=== PATIENT | female | born 1945 | race Caucasian/White ===

== ENCOUNTER → 2020-10-17 17:50 | Outpatient (CLI) | payer MEDICARE, SELFPAY ==
--- NOTE | ~2020-10-17 | DEXA_ITS ---
Bone Density Report Name: Greta Hurd Age: 75 Sex: Female Ethnicity: White Date of : 1945 Indication: osteopenia; height loss; postmenopausal Referring Provider: MALINA DELEON Study: Bone densitometry was performed. Exam Date: October 17, 2020 Accession number: [id number] Bone Density: Region BMD T-score Z-score Classification AP Spine (L1-L4) 0.951 -0.9 1.6 Normal Femoral Neck (Left) 0.692 -1.4 0.7 Osteopenia Total Hip (Left) 0.849 -0.8 1.1 Normal Femoral Neck (Right) 0.730 -1.1 1.0 Osteopenia Total Hip (Right) 0.931 -0.1 1.7 Normal Total Hip Mean 0.890 -0.5 1.4 Normal World Health Organization criteria for BMD impression classify patients as: Normal (T-score at or above -1.0), Osteopenia (T-score between -1.0 and -2.5), or Osteoporosis (T-score at or below -2.5). 10-year Fracture Risk(1): Major Osteoporotic Fracture 10% Hip Fracture 2.1% Reported Risk Factors: [place] (), Neck BMD=0.692, BMI=21.3 (1) FRAX(R) Version 3.08. Fracture probability calculated for an untreated patient. Fracture probability may be lower if the patient has received treatment. Previous Exams: Region Exam Age BMD T-score BMD Change BMD Change Date g/cm2 vs Baseline vs Previous AP Spine(L1-L4) 10/17/2020 75 0.951 -0.9 0.131* 0.058* 09/19/2018 73 0.893 -1.4 0.073* 0.035* 09/09/2016 71 0.858 -1.7 0.038* 0.039* 06/07/2014 69 0.819 -2.1 -0.001 0.006 12/08/2012 67 0.812 -2.1 -0.007 0.034* 08/27/2010 65 0.778 -2.4 -0.042* -0.006 07/15/2009 64 0.784 -2.4 -0.035* -0.023 06/08/2007 62 0.807 -2.2 -0.013 -0.013 04/14/2006 61 0.820 -2.1 Total Hip(Left) 10/17/2020 75 0.849 -0.8 0.008 0.006 09/19/2018 73 0.843 -0.8 0.002 0.014 09/09/2016 71 0.829 -0.9 -0.012 0.027 06/07/2014 69 0.802 -1.1 -0.039* 0.012 12/08/2012 67 0.790 -1.2 -0.051* -0.043* 08/27/2010 65 0.833 -0.9 -0.008 0.013 07/15/2009 64 0.819 -1.0 -0.022 0.030* 06/08/2007 62 0.789 -1.3 -0.052* -0.052* 04/14/2006 61 0.841 -0.8 Total Hip(Right) 10/17/2020 75 0.931 -0.1 -0.001 0.001 09/19/2018 73 0.930 -0.1 -0.002 -0.044* 09/09/2016 71 0.974 0.3 0.042* 0.076* 06/07/2014 69 0.898 -0.4 -0.034* 0.050* 12/08/2012 67 0.848 -0.8 -0.08
== END ==
PROVIDERS: Visit Provider Obstetrics & Gynecology Gynecology
DX: Z78.0 Asymptomatic menopausal state (principal); M85.89 Other specified disorders of bone density and structure, multiple sites
CPT/HCPCS: 77080

== ENCOUNTER → 2020-11-07 10:09 | Outpatient (CLI) | payer MEDICARE, SELFPAY ==
--- NOTE | ~2020-11-07 | MR_ITS ---
EXAMINATION: MR brain/brain stem wo con EXAM DATE: 11/07/2020 10:47 INDICATION: Worsening headache since fall 3. Generalized headaches, light sensitivity. TECHNIQUE: Magnetic resonance imaging (MRI) of the brain/brain stem obtained without contrast. Sagitt al T1, axial diffusion, gradient echo (T2*), T1, T2, FLAIR sequences obtained. There is no prior st udy for comparison. FINDINGS: Completely opacified sphenoid sinuses with heterogeneous signal intensity, could be chronic and/or acute sinusitis, polyposis, mucocele or other mass. Recommend sinus CT for further evaluation . There are no areas of restricted diffusion to suggest acute infarction. There is no acute hemorrhage seen on the T2*, a hemosiderin sensitive sequence. No intraparenchymal brain mass lesion. There is mild prominence of the sulci and ventricles related to cerebral atrophy. There are no extra-axia l collections. Flow voids are seen in the cerebral arteries on the T2-weighted sequences consistent with their expected patency. Patient has had bilateral ocular lens surgery. Soft tissue is unremark able. IMPRESSION: 1. Completely opacified heterogeneous sphenoid sinus signal intensity; clinical correlation. Recomme nd sinus CT. 2. No acute intracranial findings. Reviewed, dictated and finalized at location A. IMPRESSION: 1. Completely opacified heterogeneous sphenoid sinus signal intensity; clinica l correlation. Recommend sinus CT. 2. No acute intracranial findings.
== END ==
PROVIDERS: PCP Family Medicine Adolescent Medicine; Visit Provider Physician Assistant
DX: R51.9 Headache, unspecified (principal)
CPT/HCPCS: 70551

== ENCOUNTER → 2021-07-02 15:55 | Outpatient (CLI) | payer MEDICARE, SELFPAY ==
--- NOTE | ~2021-07-02 | US_ITS ---
EXAMINATION: US retroperitoneal comp EXAM DATE: 07/02/2021 16:15 INDICATION: Pelvic pain in female . TECHNIQUE: Multiple grayscale and Doppler images of the retroperitoneum, kidneys were obtained (by a technologist who performed the scan) and subsequently reviewed. There is no prior study for comparis on. FINDINGS: Right kidney: There is normal contour and echogenicity. It measures 8.7 x 3.5 x 4.3 centimeters. Th ere are no focal renal lesions identified. There is no hydronephrosis. Left kidney: There is normal contour and echogenicity. It measures 9.1 x 4.0 x 5.2 centimeters. The re are no focal renal lesions identified. There is no hydronephrosis. Bladder unremarkable. IMPRESSION: Sonographically unremarkable kidneys. Reviewed, dictated and finalized at location B. OMATIC COURIER
== END ==
PROVIDERS: PCP Family Medicine Adolescent Medicine; Visit Provider Nurse Practitioner Adult Health
DX: R10.2 Pelvic and perineal pain (principal)
CPT/HCPCS: 76770

== ENCOUNTER 2022-01-13 00:13 | Day surgery (SDC) | payer MEDICARE, SELFPAY ==
[2021-12-25 15:36] VITALS: BMI 20.6
[2022-01-13 09:11] VITALS: BP 148/72; PULSE 68; RESP 18; TEMP 36.3; O2SAT 100; BMI 20.5
[2022-01-13] MEDS: LACTATED RINGERS 1,000 ML 150 ML IV CONT (09:22)
--- NOTE | 2022-01-13 09:34 | WPDANESEPPF ---
Anes - Initial Pre Proc Eval Procedure: Operation Date: 01/13/22 10:30 Proposed Procedures p Esophagogastroduodenoscopy - Waldemar Ramires MD Date/Time: 01/13/22 09:34 Surgeon: Waldemar Ramires MD Pre Op Diagnosis: dysphagia Patient Data Age: 76 Gender: F Height: 1.68 m Weight: 57.5 kg Last Vital Signs Temp 36.3 C L 01/13/22 09:11 Pulse 68 01/13/22 09:11 Resp 18 01/13/22 09:11 BP 148/72 H 01/13/22 09:11 Pulse Ox 100 01/13/22 09:11 O2 Del Method Room Air 01/13/22 09:11 Allergies Allergy/AdvReac Type Severity Reaction Status Date / Time iodine Allergy Mild Hives / Verified 01/13/22 09:09 Red Face Home Medications Medication Instructions Recorded Confirmed Type Bifidobacterium infantis 4 mg 4 mg PO DAILY 09/03/21 12/25/21 History capsule (Align) cholecalciferol (vitamin D3) 1,250 1,250 mcg PO MONTHLY 09/03/21 12/25/21 History mcg (50,000 unit) capsule cyclobenzaprine 5 mg tablet 5 mg PO TID PRN Muscle Spasm 09/03/21 12/25/21 History gabapentin 300 mg capsule 300 mg PO DAILY 09/03/21 12/25/21 History latanoprost 0.005 % eye drops 1 drp EACH EYE QPM 09/03/21 12/25/21 History loratadine 10 mg tablet 5 mg PO DAILY 09/03/21 12/25/21 History (Allerclear) magnesium 250 mg tablet 250 mg PO DAILY 09/03/21 12/25/21 History diclofenac sodium 1 % topical gel 2 g topical QID PRN Pain 12/15/21 12/25/21 History (Voltaren Arthritis Pain) fluticasone propionate 50 1 spray intranasal DAILY 12/15/21 12/25/21 History mcg/actuation nasal spray,suspension (Aller-Mane) propylene glycol 0.6 % eye drops 1 drp EACH EYE BID PRN Dry Eyes 12/15/21 12/25/21 History (Systane Complete) psyllium husk 0.4 gram capsule 1.6 g PO BID 12/15/21 12/25/21 History (Fiber (psyllium husk)) cephalexin 250 mg capsule 250 mg PO DAILY 12/25/21 12/25/21 History tobramycin-dexamethasone 0.3 %-0.1 1 applic EACH EYE TID PRN other 12/25/21 12/25/21 History % eye ointment (TobraDex) Patient hx anesthesia problems: none Family hx anesthesia problems: none Results Review: All pre-operative results and documents have been reviewed as part of the pre-operative evaluation. [facility] Past Medical History Medical History Normal colonoscopy 2018 Personal history of malignant neoplasm of breast 2009 Surgical History Surgical History History of lumbar surgery 2011 Family History Family History Father Heart disease Social History Social History Smoking status: Never smoker Second hand tobacco smoke exposure: No Alcohol intake: current Drinks per week: 4 Substance use: never Substance use type: does not use Living arrangements: with family Gender identity (if verbalized by the patient): Female Sexual Orientation (if Verbalized by the Patient): Straight or Heterosexual Spiritual care concerns: No Agree to blood products: Yes Anes - Eval Final PreProcedure Day of Procedure 01/13/22 09:34 Patient weight: normal Heart: regular rate and rhythm Lungs: clear to auscultation Airway: Mallampati scale class II Neurological: alert and oriented Last oral intake: >/= 8 hours ASA classification: II Emergent: no Anesthetic plan: proceed Anesthesia type and monitoring: general GIVS and standard monitoring Results Review: All pre-operative results and documents have been reviewed as part of the pre-operative evaluation. Informed Consent: The patient's anesthetic plan and its attendant risks and benefits were discussed with the patient/family/POA. Questions were solicited and answers provided to the satisfaction of the patient/family/POA.
--- NOTE | 2022-01-13 09:49 | WPDGICN ---
Assessment and Plan Assessment and plan (1) Dysphagia: Code(s): R13.10 - Dysphagia, unspecified Status: Acute Assessment and Plan: patient has difficulty swallowing solid foods that appear to catch in mid substernal portion the chest. This is very suspicious for esophageal narrowing. Plan is for EGD to assess more thoroughly. Possibly for dilatation. Further recommendations will be given after endoscopy. GI Consult Note Consult date/time: 01/13/22 09:49 Reason for consult: Dysphagia. HPI: Greta Hurd is a 76 year old female Presents for EGD. Patient reports over the last 2 years has had difficulty swallowing solid foods and pills. She states these will catch in the mid substernal portion of her chest. She then will not be able to eat or swallow. Often has to regurgitate this. Sometimes it will pass slowly. She has to chew and cut up her meat very is small pieces. Patient denies any specific abdominal pain. She denies any heartburn. She has had no bleeding. She has had no weight loss. Family history is noncontributory. Review of Systems Review of Systems: Review of systems noncontributory. [facility] Past Medical History Medical History Normal colonoscopy 2018 Personal history of malignant neoplasm of breast 2009 Surgical History Surgical History History of lumbar surgery 2011 Family History Family History Father Heart disease Social History Social History Smoking status: Never smoker Second hand tobacco smoke exposure: No Alcohol intake: current Drinks per week: 4 Substance use: never Substance use type: does not use Living arrangements: with family Gender identity (if verbalized by the patient): Female Sexual Orientation (if Verbalized by the Patient): Straight or Heterosexual Spiritual care concerns: No Agree to blood products: Yes Meds Home Medications and Allergies Home Medications Medication Instructions Recorded Confirmed Type Bifidobacterium infantis 4 mg 4 mg PO DAILY 09/03/21 12/25/21 History capsule (Align) cholecalciferol (vitamin D3) 1,250 1,250 mcg PO MONTHLY 09/03/21 12/25/21 History mcg (50,000 unit) capsule cyclobenzaprine 5 mg tablet 5 mg PO TID PRN Muscle Spasm 09/03/21 12/25/21 History gabapentin 300 mg capsule 300 mg PO DAILY 09/03/21 12/25/21 History latanoprost 0.005 % eye drops 1 drp EACH EYE QPM 09/03/21 12/25/21 History loratadine 10 mg tablet 5 mg PO DAILY 09/03/21 12/25/21 History (Allerclear) magnesium 250 mg tablet 250 mg PO DAILY 09/03/21 12/25/21 History diclofenac sodium 1 % topical gel 2 g topical QID PRN Pain 12/15/21 12/25/21 History (Voltaren Arthritis Pain) fluticasone propionate 50 1 spray intranasal DAILY 12/15/21 12/25/21 History mcg/actuation nasal spray,suspension (Aller-Mane) propylene glycol 0.6 % eye drops 1 drp EACH EYE BID PRN Dry Eyes 12/15/21 12/25/21 History (Systane Complete) psyllium husk 0.4 gram capsule 1.6 g PO BID 12/15/21 12/25/21 History (Fiber (psyllium husk)) cephalexin 250 mg capsule 250 mg PO DAILY 12/25/21 12/25/21 History tobramycin-dexamethasone 0.3 %-0.1 1 applic EACH EYE TID PRN other 12/25/21 12/25/21 History % eye ointment (TobraDex) Allergies Allergy/AdvReac Type Severity Reaction Status Date / Time iodine Allergy Mild Hives / Verified 01/13/22 09:09 Red Face Vital Signs Vital Signs - 24 hr 01/13/22 09:11 Temperature 97.4 F L Pulse Rate 68 Respiratory Rate 18 Blood Pressure 148/72 H Pulse Oximetry 100 Oxygen Delivery Room Air Exam Narrative: Physical exam reveals patient to be alert. Vital signs stable. HEENT exam is unremarkable. Patient is anicteric. Lungs are clear to auscultation and pe
[2022-01-13] MEDS: BENZOCAINE (*SP) 60 ML SPRAY CAN (HURRICAINE) 1 SPRAY MUCOUS MEM (10:29)
[2022-01-13 10:38] VITALS: BP 147/78; PULSE 58; RESP 22; O2SAT 100
[2022-01-13 10:48] VITALS: BP 155/76; PULSE 58; RESP 16; O2SAT 100
[2022-01-13 10:58] VITALS: BP 155/79; PULSE 54; RESP 18; O2SAT 100
== END 2022-01-13 11:05 | disposition home or self-care (01) ==
PROVIDERS: PCP Family Medicine Adolescent Medicine; Visit Provider Internal Medicine Gastroenterology
PROC: 0DJ08ZZ Inspection of Upper Intestinal Tract, Via Natural or Artificial Opening Endoscopic (ICD-10-PCS; CPT 43235; principal; 2022-01-13 10:30)
DX: R13.19 Other dysphagia (principal)
CPT/HCPCS: 43450; J2704; J7120

== ENCOUNTER → 2022-10-29 09:41 | Outpatient (CLI) | payer MEDICARE, SELFPAY ==
--- NOTE | ~2022-10-29 | MR_ITS ---
MRI of the brain and internal auditory canals Clinical History: Headache Technique: Axial and sagittal T1-weighted images were acquired. These were followed by axial T2-weigh mango, diffusion weighted, gradient, and FLAIR images. Coronal thin cut T1-weighted and T2-weighted maria alejandra ges, and thin cut axial T1-weighted images were performed through the internal auditory canals. COMPARISON: 11/07/2020 Findings: No abnormal signal seen in the brain parenchyma. No acute infarct, intracranial hemorrhage, or mass lesion. Ventricles and subarachnoid spaces are unremarkable. Orbits are unremarkable. Bilateral sphenoid sinu s disease present. Remaining paranasal sinuses and mastoid air cells are clear. Major intracranial fl ow voids are intact. Sagittal midline structures are intact. No evidence for abnormal mass lesion at the internal auditory canals or cerebellopontine angle region s. IMPRESSION: No significant abnormality seen. Reviewed, dictated and finalized at [facility].
== END ==
PROVIDERS: PCP Family Medicine Adolescent Medicine; Visit Provider Family Medicine Adolescent Medicine
DX: R51.9 Headache, unspecified (principal)
CPT/HCPCS: 70551

== ENCOUNTER → 2023-02-12 12:10 | Outpatient (CLI) | payer MEDICARE, SELFPAY ==
--- NOTE | ~2023-02-12 | DEXA_ITS ---
Bone Density Report Name: PEDRITO GALVEZ Age: 77 Sex: Female Ethnicity: White Date of : 1945 Indication: postmenopausal; screening for osteoporosis; height loss; prior fracture; Referring Provider: MALINA DELEON Study: Bone densitometry was performed. Exam Date: February 12, 2023 Accession number: [id number] Bone Density: Region BMD T-score Z-score Classification AP Spine (L1-L4) 0.813 -2.1 0.4 Osteopenia Femoral Neck (Left) 0.639 -1.9 0.3 Osteopenia Total Hip (Left) 0.754 -1.5 0.4 Osteopenia Femoral Neck (Right) 0.617 -2.1 0.1 Osteopenia Total Hip (Right) 0.806 -1.1 0.8 Osteopenia Total Hip Mean 0.780 -1.3 0.6 Osteopenia World Health Organization criteria for BMD impression classify patients as: Normal (T-score at or above -1.0), Osteopenia (T-score between -1.0 and -2.5), or Osteoporosis (T-score at or below -2.5). 10-year Fracture Risk(1): Major Osteoporotic Fracture 19% Hip Fracture 5.3% Reported Risk Factors: [place] (), Neck BMD=0.617, BMI=20.7, previous fracture (1) FRAX(R) Version 3.08. Fracture probability calculated for an untreated patient. Fracture probability may be lower if the patient has received treatment. Previous Exams: Region Exam Age BMD T-score BMD Change BMD Change Date g/cm2 vs Baseline vs Previous AP Spine(L1-L4) 02/12/2023 77 0.813 -2.1 -0.006 -0.137* 10/17/2020 75 0.951 -0.9 0.131* 0.058* 09/19/2018 73 0.893 -1.4 0.073* 0.035* 09/09/2016 71 0.858 -1.7 0.038* 0.039* 06/07/2014 69 0.819 -2.1 -0.001 0.006 12/08/2012 67 0.812 -2.1 -0.007 0.034* 08/27/2010 65 0.778 -2.4 -0.042* -0.006 07/15/2009 64 0.784 -2.4 -0.035* -0.023 06/08/2007 62 0.807 -2.2 -0.013 -0.013 04/14/2006 61 0.820 -2.1 Total Hip(Left) 02/12/2023 77 0.754 -1.5 -0.088* -0.096* 10/17/2020 75 0.849 -0.8 0.008 0.006 09/19/2018 73 0.843 -0.8 0.002 0.014 09/09/2016 71 0.829 -0.9 -0.012 0.027 06/07/2014 69 0.802 -1.1 -0.039* 0.012 12/08/2012 67 0.790 -1.2 -0.051* -0.043* 08/27/2010 65 0.833 -0.9 -0.008 0.013 07/15/2009 64 0.819 -1.0 -0.022 0.030* 06/08/2007 62 0.789 -1.3 -0.052* -0.052* 04/14/2006 61 0.841 -0.8 Total Hip(Right) 02/12/2023 77 0.806 -1.1 -0.126* -0.125* 10/17/2020 75 0.931 -0.1 -0
== END ==
PROVIDERS: PCP Family Medicine Adolescent Medicine; Visit Provider Obstetrics & Gynecology Gynecology
DX: Z78.0 Asymptomatic menopausal state (principal); M85.89 Other specified disorders of bone density and structure, multiple sites
CPT/HCPCS: 77080

== ENCOUNTER 2023-12-27 12:41 | Outpatient (CLI) | payer MEDICARE, SELFPAY ==
--- NOTE | ~2023-12-27 | MM_ITS ---
EXAMINATION: MM screening lloyd BI w [facility] HISTORY: Screening mammogram TECHNIQUE: Craniocaudal and mediolateral oblique 3-D tomosynthesis images were obtained and synthetic 2-D images were generated. Rotated lateral craniocaudal view of the left breast. CAD analysis was tilley bmitted and interpreted. COMPARISON: December 04, 2010 bilateral diagnostic mammogram BREAST PARENCHYMAL COMPOSITION: There are scattered areas of fibroglandular density. FINDINGS: Mild asymmetry in the upper-outer quadrant of the left breast, diminished since December [id number], consistent with postoperative change from prior partial left mastectomy for breast cancer. Prominent bilateral arterial calcifications are noted bilaterally. Occasional calcified marker hemato mas on the left. There is no evidence of suspicious mass, calcification, or architectural distortion to suggest malignancy in either breast. There has been no suspicious interval change. IMPRESSION: 1. No status post left partial mastectomy for breast cancer. Mammographic evidence of malignancy. 2. Recommend routine screening mammography in one year. BI-RADS Category 2: Benign finding(s). Reviewed, dictated and finalized at location A. IMPRESSION: 1. No status post left partial mastectomy for breast cancer. Mammographic evide nce of malignancy. 2. Recommend routine screening mammography in one year. BI-RADS Category 2: Benign finding(s).
== END 2023-12-27 12:42 ==
LOC: MICIMG 12:43
PROVIDERS: PCP Obstetrics & Gynecology Gynecology; Visit Provider Obstetrics & Gynecology Gynecology
DX: Z12.31 Encounter for screening mammogram for malignant neoplasm of breast (principal); Z90.12 Acquired absence of left breast and nipple; Z85.3 Personal history of malignant neoplasm of breast
CPT/HCPCS: 77063; 77067

== ENCOUNTER 2024-02-15 14:44 | Outpatient (CLI) | payer MEDICARE, SELFPAY ==
--- NOTE | ~2024-02-15 | XR_ITS ---
XR hip BI 2V w AP pelvis Ordering provider: Bandar Alvarez MD History: . Bilateral hip pain . Comparison: None. FINDINGS: BONES: No acute fracture or dislocation. HIP JOINT SPACES: Normal. SACROILIAC JOINT SPACES/LUMBAR SPINE: The left sacroiliac joint spaces shows mild osteoarthritic boyd ges. Mild degenerative changes of the visualized lower lumbar spine. PUBIC SYMPHYSIS: Normal. SOFT TISSUES: Normal. IMPRESSION: No acute osseous abnormality of the bilateral hips and pelvis. Mild left sacroiliac joint osteoarthritic changes. Reviewed, dictated and finalized at location A.
--- NOTE | ~2024-02-15 | XR_ITS ---
XR knee LT 3V Ordering provider: Bandar Alvarez MD History: . M17.0 - Bilateral primary osteoarthritis of knee . Comparison: None. FINDINGS: BONES: No acute fracture or dislocation. JOINT SPACES: Normal. Osteoarthritic changes of the patellofemoral joint is noted. SOFT TISSUES: Soft tissue calcifications seen laterally near to the patella which may be ossification the soft tissues or on the fracture. IMPRESSION: No acute osseous abnormality left knee. Mild to moderate osteoarthritic changes of the patellofemoral joint. Consider MRI knee if there is concern for soft tissue internal derangement. Reviewed, dictated and finalized at location A.
--- NOTE | ~2024-02-15 | XR_ITS ---
XR knee RT 3V Ordering provider: Bandar Alvarez MD History: . M17.0 - Bilateral primary osteoarthritis of knee . Comparison: None. FINDINGS: BONES: No acute fracture or dislocation. JOINT SPACES: Mild osteoarthritic changes of the patellofemoral joint. SOFT TISSUES: Normal. IMPRESSION: No acute osseous abnormality right knee. Mild osteoarthritic changes of the patellofemoral joint. Reviewed, dictated and finalized at location A.
== END 2024-02-15 14:45 ==
PROVIDERS: PCP Family Medicine Adolescent Medicine; Visit Provider Family Medicine Adolescent Medicine
DX: M17.0 Bilateral primary osteoarthritis of knee (principal); M46.1 Sacroiliitis, not elsewhere classified
CPT/HCPCS: 73521; 73562

== ENCOUNTER 2024-04-24 09:52 | Outpatient (CLI) | payer MEDICARE, SELFPAY ==
--- NOTE | ~2024-04-24 | MR_ITS ---
EXAMINATION: MR hip LT wo con DATE: 04/24/2024 10:46 INDICATION: Left hip trochanteric bursitis TECHNIQUE: Magnetic resonance imaging (MRI) of the left hip was performed without intravenous contra st. Sequences included full-field axial PD-weighted FS FSE and T1-weighted FSE, coronal of the pelvis with PD-weighted FS FSE, small field of view of the left hip with axial PD-weighted FS FSE, sagitta l PD-weighted FS FSE and coronal PD weighted FS FSE. Additional radial T1-weighted FGR oriented ortho gonal to the acetabular rim were obtained for evaluation of the labrum. COMPARISON: None FINDINGS: Bones/labrum/cartilage: Alignment is normal. No fracture, avascular necrosis or pathologic marrow replacing process. Lower l umbar spondylosis with severe disc height loss and degenerative endplate changes at L5-S1. Lower lumb ar facet osteoarthritis severe bilaterally at L4-5 and moderate at L5-S1. Mild to moderate osteoarthr itis at the left hip with partial thickness cartilage loss involving greater than 50% the cartilage t hickness but without degenerative subchondral changes at the anterior, posterior and posterior medial aspects of the left femoral head and posterior inferior left acetabulum. Chronic degeneration of the right acetabular labrum marginal osteophytes and minimal if any residual labral tissue along the sup erolateral to posterior rim of the left acetabulum and tear at the base of the small remaining vasile superior left acetabular labrum. Similar findings suggested but not diagnostically evaluated on the l arger [id number] images at the contralateral right hip. Fluid: Symmetric physiologic amount of fluid within both hip joints. Small amount of fluid in the bilateral gluteus medius bursae consistent with mild bursitis. Soft tissues: Normal and symmetric muscle bulk and signal in the pelvis and visualized proximal thighs. Tendinopath y at the bilateral distal gluteus medius medius tendons, mild on the right and moderate on the left a nd additional mild tendinopathy of the left gluteus minimus tendon, all without discrete tear. The il iopsoas and proximal hamstring tendons are normal. 3.6 cm right adnexal cyst. Limited evaluation of v isceral organs of the pelvis is otherwise unremarkable. No pathologically enlarged pelvic/inguinal l ymphadenopathy. IMPRESSION: 1. 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 2. Mild left gluteus minimus tendinopathy and mild right-sided and moderate left-sided gluteus medius tendinopathy with mild associated bilateral gluteus medius medius bursitis but without discrete tear s. 3. Severe lower lumbar spondylosis. 4. 3.6 cm right adnexal cyst. Reviewed, dictated and finalized at location B. IMPRESSION: 1. Mild to moderate left hip osteoarthritis with chronic degeneration of the le ft acetabular labrum. 2. Mild left gluteus minimus tendinopathy and mild right-sided and moderate lef t-sided gluteus medius tendinopathy with mild associated bilateral gluteus medi us medius bursitis but without discrete tears. 3. Severe lower lumbar spondylosis. 4. 3.6 cm right adnexal cyst.
== END 2024-04-24 09:53 | disposition home or self-care (01) ==
LOC: ANHIMG 09:58
PROVIDERS: PCP Family Medicine Adolescent Medicine; Visit Provider Orthopaedic Surgery
DX: M70.62 Trochanteric bursitis, left hip (principal); M16.12 Unilateral primary osteoarthritis, left hip; M76.02 Gluteal tendinitis, left hip; M43.06 Spondylolysis, lumbar region; N83.201 Unspecified ovarian cyst, right side
CPT/HCPCS: 73721

== ENCOUNTER 2024-08-01 08:51 | Outpatient (CLI) | payer MEDICARE, SELFPAY ==
--- NOTE | ~2024-08-01 | MM_ITS ---
EXAMINATION: MM diagnostic lloyd BI w [facility] HISTORY: Bilateral breast pain. History of left breast cancer status post lumpectomy. TECHNIQUE: Additional 3-D tomosynthesis images of the breasts were performed and synthetic 2-D images were generated. CAD analysis was submitted and interpreted. COMPARISON: Comparison to multiple prior studies sequentially, with oldest reviewed study dated 12/04. BREAST PARENCHYMAL COMPOSITION: Not dense: There are scattered areas of fibroglandular density. FINDINGS: The breast are stable bilaterally. Lumpectomy site in the upper outer quadrant of the left breast is stable. There are benign bilateral breast calcifications. No new masses, calcifications or architectural distortion are identified in either breast to suggest malignancy. IMPRESSION: 1. No evidence for malignancy in either breast. 2. Routine yearly screening mammogram and regular clinical breast examination are recommended. BI-RADS Category 2: Benign finding(s). Reviewed, dictated and finalized at location B. [employer]ELOP[employer] INTERN IMPRESSION: 1. No evidence for malignancy in either breast. 2. Routine yearly screening mammogram and regular clinical breast examination a re recommended. BI-RADS Category 2: Benign finding(s).
== END 2024-08-01 08:52 | disposition home or self-care (01) ==
LOC: MICIMG 08:52
PROVIDERS: PCP Family Medicine Adolescent Medicine; Visit Provider Nurse Practitioner
DX: N64.4 Mastodynia (principal); Z85.3 Personal history of malignant neoplasm of breast
CPT/HCPCS: 77062; 77066; G0279

== ENCOUNTER 2025-06-06 11:10 | Outpatient (CLI) | payer MEDICARE, SELFPAY ==
--- NOTE | ~2025-06-06 | DEXA_ITS ---
Bone Density Report Name: PEDRITO GALVEZ Age: 80 Sex: Female Ethnicity: White Date of : 1945 Indication: osteopenia; height loss; prior fracture; cancer; Referring Provider: NAHUN, RUBINA Study: Bone densitometry was performed. Exam Date: June 06, 2025 Accession number: [id number] Bone Density: Region BMD T-score Z-score Classification AP Spine(L1-L4) 0.833 -1.9 0.8 Osteopenia Femoral Neck (Left) 0.583 -2.4 -0.1 Osteopenia Total Hip (Left) 0.686 -2.1 0.0 Osteopenia Femoral Neck (Right) 0.581 -2.4 -0.1 Osteopenia Total Hip (Right) 0.727 -1.8 0.3 Osteopenia Total Hip Mean 0.707 -2.0 0.2 Osteopenia World Health Organization criteria for BMD impression classify patients as: Normal (T-score at or above -1.0), Osteopenia (T-score between -1.0 and -2.5), or Osteoporosis (T-score at or below -2.5). 10-year Fracture Risk(1): Major Osteoporotic Fracture 23% Hip Fracture 7.2% Reported Risk Factors: [place] (), Neck BMD=0.583, BMI=21.3, previous fracture (1) FRAX(R) Version 3.08. Fracture probability calculated for an untreated patient. Fracture probability may be lower if the patient has received treatment. Previous Exams: -- Region Exam Age BMD T-score BMD Change BMD Change Date g/cm2 vs Baseline vs Previous -- AP Spine (L1-L4) 06/06/2025 80 0.833 -1.9 1.7% 2.5% 02/12/2023 77 0.813 -2.1 -0.8% -14.4%* 10/17/2020 75 0.951 -0.9 16.0%* 6.5%* 09/19/2018 73 0.893 -1.4 8.9%* 4.1%* 09/09/2016 71 0.858 -1.7 4.7%* 4.8%* 06/07/2014 69 0.819 -2.1 -0.1% 0.8% 12/08/2012 67 0.812 -2.1 -0.9% 4.4%* 08/27/2010 65 0.778 -2.4 -5.1%* -0.8% 07/15/2009 64 0.784 -2.4 -4.3%* -4.3%* 04/14/2006 61 0.820 -2.1 Total Hip(Left) 06/06/2025 80 0.686 -2.1 -18.4%* -8.9%* 02/12/2023 77 0.754 -1.5 -10.4%* -11.3%* 10/17/2020 75 0.849 -0.8 1.0% 0.7% 09/19/2018 73 0.843 -0.8 0.2% 1.7% 09/09/2016 71 0.829 -0.9 -1.5% 3.3% 06/07/2014 69 0.802 -1.1 -4.7%* 1.5% 12/08/2012 67 0.790 -1.2 -6.1%* -5.1%* 08/27/2010 65 0.833 -0.9 -1.0% 1.6% 07/15/2009 64 0.819 -1.0 -2.6% -2.6% 04/14/2006 61 0.841 -0.8 Total Hip(Right) 06/06/2025 80 0.727 -1.8 -21.9%* -9.7%* 02/12/2023 77 0.806 -1.1 -13.5%* -13.4%* 10/17/2020 75 0.931 -0.1 -0.1% 0.1% 09/19/2018 73 0.930 -0.1 -0.2% -4.5%* 09/09/2016 71 0.974 0.3 4.6%* 8.5%* 06/07/2014 69 0.898 -0.4 -3.6%* 5.9%* 12/08/2012 67 0.848 -0.8 -9.0%* -0.6% 08/27/2010 65 0.853 -0.7 -8.4%* -2.6% 07/15/2009 64 0.876 -0.5 -5.9%* -5.9%* 04/14/2006 61 0.931 -0.1 -- *Denotes significance at 95% confidence level, LSC for AP Spine = 0.022 g/cm2, LSC for Total Hip = 0.027 g/cm2 Clinical Information Provided by Patient: Has had a low trauma fracture Has used the following medications: Fosamax (i.e. alendronate), Prolia (i.e. denosumab), Vitamin D, Calcium Has the following medical conditions: Cancer, breast cancer Patient maximum height was 67 Menopause Age: 50 Drinks caffeinated beverages Onset of menses at age 14 Number of children 3 Impression: The patient has low bone mass, based on the Left Femoral Neck T-score. The patient has an estimated ten-year risk of hip fracture of 7.2% and an estimated ten-year risk of major fracture of 23%, based on the WHO FRAX algorithm. The patient has risk factors, including: previous fracture. The BMD for the Total Hip(Left) decreased, changing by -8.9% since the last DXA exam. The BMD for the Total Hip(Right) decreased, changing by -9.7% since the last DXA exam. Discussion: BONE DENSITY IS LOW AT ONE OR MORE SKELETAL SITES. THE PATIENT'S BMD AND CLINICAL RISK FACTORS CONTRIBUTE TO THIS PATIENT'S HIGH RISK OF FRACTURE. This patient's lowest T-score is low at one or more skeletal sites. It meets the World Health Organization's (WHO) criteria for ?low bone mass? (T-score between -1.0 and -2.5). The patient's 10-year risk of hip fracture and 10 year risk of a major osteoporotic fracture as calculated by FRAX exceeds the threshold where pharmacological therapy is recommended by the National Osteoporosis Foundation (NOF). However, all treatment decisions require clinical judgment and consideration of individual patient factors, including patient preferences, comorbidities, previous drug use, risk factors not captured in the FRAX model (e.g., frailty, falls, vitamin D deficiency, increased bone turnover, interval significant decline in bone density) and possible under or overestimation of fracture risk by FRAX. The patient should follow a healthful lifestyle (good nutrition with adequate calcium and vitamin D, and appropriate weight-bearing exercise). Follow-Up: Consider a repeat BMD and Vertebral Fracture Assessment (VFA) exam in 2 years or sooner if medically necessary, to reassess this patient's status. Reported by: AYESHA on 06/06/2025 11:47:00 AM. Reviewed, dictated and finalized at location A.
== END 2025-06-06 11:11 | disposition home or self-care (01) ==
LOC: MICIMG 11:11
PROVIDERS: PCP Family Medicine Adolescent Medicine
DX: M85.89 Other specified disorders of bone density and structure, multiple sites (principal); Z78.0 Asymptomatic menopausal state
CPT/HCPCS: 77080

== ENCOUNTER 2025-06-06 11:13 | Outpatient (CLI) | payer MEDICARE, SELFPAY ==
--- NOTE | ~2025-06-06 | XR_ITS ---
XR hip LT 2V w AP pelvis 06/06/2025 11:44 Indication: Osteoarthritis. Procedure: AP pelvis and 2 views left hip Comparison: 10/27/2024 Findings: There is mild bilateral symmetric osteoarthritis of the hips. Osteopenia. There is lower lumbar spondylosis. Sacral foramen are symmetric. Pelvic rings are intact. No fracture or traumatic malalignment. Impression: 1: Mild symmetric osteoarthritis of the hips. Reviewed, dictated and finalized at location O. Impression: 1: Mild symmetric osteoarthritis of the hips.
--- NOTE | ~2025-06-06 | XR_ITS ---
EXAMINATION: XR knee RT min 4V, 06/06/2025 11:20 CDT HISTORY: M17.11 - Unilateral primary osteoarthritis, right knee COMPARISON: No comparisons available. Findings: No acute fracture or malalignment. Moderate to severe tricompartmental degenerative changes, small effusion Soft tissues unremarkable. Impression: No acute fracture or malalignment. Reviewed, dictated and finalized at location P. Impression: No acute fracture or malalignment.
--- NOTE | ~2025-06-06 | XR_ITS ---
XR knee LT min 4V 06/06/2025 11:44 Indication: Left knee pain Procedure: 4 views left knee Comparison: 02/15/2024 Findings: There is mild-moderate tricompartment osteoarthritis most advanced at the patellofemoral compartment. No fracture or traumatic malalignment. No joint effusion. No focal soft tissue abnormality. Impression: 1: Mild-moderate tricompartment osteoarthritis. Reviewed, dictated and finalized at location O. Impression: 1: Mild-moderate tricompartment osteoarthritis.
== END 2025-06-06 11:14 | disposition home or self-care (01) ==
LOC: MICIMG 11:14
PROVIDERS: PCP Family Medicine Adolescent Medicine; Visit Provider Orthopaedic Surgery
DX: M17.12 Unilateral primary osteoarthritis, left knee (principal); M16.0 Bilateral primary osteoarthritis of hip
CPT/HCPCS: 73502; 73564